=== PATIENT | female | born 1950 ===

== ENCOUNTER 2017-03-10 08:35 | Observation (INO) | payer OTHER ==
[2017-03-10] MEDS ORDERED: NS 1,000 ML IV ONE (08:38)
--- NOTE | 2017-03-10 08:58 | CPEKG ---
Heart Rate: 61 RR Interval: 984 P-R Interval: 152 QRSD Interval: 98 QT Interval: 400 QTC Interval: 403 P [place]: 69 QRS [place]: -17 T Wave [place]: 47 EKG Severity - ABNORMAL ECG - EKG Impression: SINUS RHYTHM EKG Impression: VENTRICULAR TRIGEMINY EKG Impression: BORDERLINE LEFT AXIS DEVIATION EKG Impression: LOW VOLTAGE IN FRONTAL LEADS Electronically Signed By: Alannah Gallegos 10-Mar-2017 14:18:46
--- NOTE | 2017-03-10 09:01 | PDANEPAE ---
ANE Past Medical History - Cardiovascular History Hx Arrhythmias: Yes Hx Palpitations: Yes Cardiovascular History Comment: SVT with syncopal episodes - Neurological & Psychiatric Hx Neurological / Psychiatric History Comment: depression ANE Review of Systems Review of Systems: ANE Patient History - Allergies Allergies/Adverse Reactions: codeine Allergy (Verified 03/10/17 08:56) ANE Physical Exam - Airway Mallampati Score: Class 1 Mouth exam: normal dental/mouth exam - Pulmonary Pulmonary: no respiratory distress, no rales or rhonchi, clear to auscultation - Cardiovascular Cardiovascular: regular rate and rhythym, no murmur, rub, or gallop, pulses symmetric bilaterally - ASA Status ASA Status: II ANE Anesthesia Plan Anesthesia Plan: general endotracheal anesthesia
[2017-03-10 09:10] LABS: % IMMATURE GRANULYOCYTES 0.2 % (0.0-1.1); ABSOLUTE IMMATURE GRANULOCYTES 0.01 10^3/uL (0.00-0.10); ADD DIFF? NO; ADD MORPH? NO; ADD SCAN? NO; ATYPICAL LYMPHOCYTE FLAG 20 (0-99); FRAGMENT RBC FLAG 0 (0-99); HEMATOCRIT 39.7 % (38.0-47.0); HEMOGLOBIN 13.7 g/dL (12.6-16.3); LEFT SHIFT FLG 0 (0-99); LIPEMIA HEMOLYSIS FLAG 90 (0-99); MEAN CELL HEMOGLOBIN 31.4 pg (27.9-34.1); MEAN CELL HEMOGLOBIN CONCENTR. 34.5 g/dL (32.4-36.7); MEAN CELL VOLUME 91.1 fL (81.5-99.8); PLATELET CLUMPS FLAG 10 (0-99); PLATELET COUNT 127 10^3/uL (150-400); RED BLOOD CELL COUNT 4.36 10^6/uL (4.18-5.33)
[2017-03-10] MEDS ORDERED: HEPARIN 10,000 UNIT/10 ML MDV ONE (09:11)
[2017-03-10] MEDS ORDERED: LIDOCAINE 1% 300 MG/30 ML SDV ONE (09:11)
[2017-03-10] MEDS ORDERED: BUPIVACAINE 0.5% 30 ML SDV ONE (09:11)
[2017-03-10] MEDS ORDERED: ISOPROTERENOL HCL/D5W 0.2 MG/50 ML BAG IV ONE (09:11)
--- NOTE | 2017-03-10 09:19 | PDGENHP ---
History & Physical Chief Complaint: Palpitation History of Present Illness: Pt had palpitation which brought her to the ER and it terminated with Adenosine. Pertinent Past, Social, Family History: Non smoker, No significant ETOH abuse Relevant Physical Exam: Normal Cardiac and pulmonary exam Cardiorespiratory Assessment: Normal SR with PVC. Normal cardiopulmonary exam
[2017-03-10] MEDS ORDERED: PROPOFOL/EMULSION 500 MG/50 ML BOTTLE IV ONE (09:24)
[2017-03-10] MEDS ORDERED: MIDAZOLAM 2 MG/2 ML VIAL ONE (09:24)
[2017-03-10] MEDS ORDERED: fentaNYL 100 MCG/2 ML INJ ONE (09:24)
[2017-03-10 09:28] LABS: ANION GAP 11 mEq/L (8-16); CARBON DIOXIDE 25 mEq/l (22-31); CHLORIDE 105 mEq/L (97-110); GLOMERULAR FILTRATION RATE 56; GLUCOSE 56 mg/dL (70-100); INR 1.17 (0.83-1.16); MAGNESIUM 2.1 mg/dL (1.6-2.3); POTASSIUM 3.9 mEq/L (3.5-5.2); PROTIME(PATIENT) 14.9 SEC (12.0-15.0); SODIUM 141 mEq/L (134-144)
[2017-03-10 09:29] LABS: APTT 32.3 SEC (23.0-38.0)
[2017-03-10] MEDS ORDERED: SUGAMMADEX SODIUM 200 MG/2 ML VIAL IVP ONE (10:14)
[2017-03-10] MEDS ORDERED: ONDANSETRON 4 MG/2 ML VIAL ONE (10:14)
[2017-03-10] MEDS ORDERED: ROCURONIUM 50 MG/5 ML VIAL ONE ×2 (10:14→11:16)
[2017-03-10] MEDS ORDERED: epHEDrine SULFATE 10 MG/ML SYR ONE (10:14)
[2017-03-10] MEDS ORDERED: PHENYLEPHRINE HCL 100 MCG/ML SYR ONE ×2 (10:14→11:46)
[2017-03-10] MEDS ORDERED: ONDANSETRON 4 MG/2 ML VIAL IVP PRN (12:00)
[2017-03-10] MEDS ORDERED: ACETAMINOPHEN 325 MG TAB PO PRN (12:00)
[2017-03-10] MEDS ORDERED: LR 500 ML IV PRN (13:02)
[2017-03-10] MEDS ORDERED: fentaNYL 100 MCG/2 ML INJ IVP PRN (13:02)
[2017-03-10] MEDS ORDERED: ALBUTEROL 3 ML DEYVIAL IH PRN (13:02)
[2017-03-10] MEDS ORDERED: NALOXONE HCL 0.4 MG/ML INJ IVP PRN (13:02)
[2017-03-10] MEDS ORDERED: DEXAMETHASONE 4 MG/ML VIAL IVP PRN (13:02)
[2017-03-10] MEDS ORDERED: PROMETHAZINE HCL 25 MG/ML INJ IVP PRN (13:02)
--- NOTE | 2017-03-10 13:02 | POSTANESTH ---
Post Anesthetic Evaluation Cardiovascular Status: Normal, Stable Respiratory Status: Normal, Stable Level of Consciousness/Mental Status: Can Participate in Eval Pain Control: Adequate, Prn Tx Ordered Nausea/Vomiting Control: Adequate, Prn Tx Ordered Complications Possibly Related to Anesthesia: None Noted
[2017-03-10 13:49] LABS: ANION GAP 8 mEq/L (8-16); CALCIUM 9.3 mg/dL (8.5-10.4); CARBON DIOXIDE 25 mEq/l (22-31); CHLORIDE 108 mEq/L (97-110); CREATININE 0.9 mg/dL (0.6-1.0); GLOMERULAR FILTRATION RATE > 60; GLUCOSE 100 mg/dL (70-100); MAGNESIUM 2.2 mg/dL (1.6-2.3); SODIUM 141 mEq/L (134-144)
[2017-03-11 05:03] LABS: % IMMATURE GRANULYOCYTES 0.2 % (0.0-1.1); ABSOLUTE IMMATURE GRANULOCYTES 0.01 10^3/uL (0.00-0.10); ADD DIFF? NO; ADD MORPH? NO; ADD SCAN? NO; ATYPICAL LYMPHOCYTE FLAG 10 (0-99); FRAGMENT RBC FLAG 0 (0-99); HEMATOCRIT 36.1 % (38.0-47.0); HEMOGLOBIN 12.6 g/dL (12.6-16.3); LEFT SHIFT FLG 0 (0-99); LIPEMIA HEMOLYSIS FLAG 90 (0-99); MEAN CELL HEMOGLOBIN 32.4 pg (27.9-34.1); MEAN CELL HEMOGLOBIN CONCENTR. 34.9 g/dL (32.4-36.7); MEAN CELL VOLUME 92.8 fL (81.5-99.8); PLATELET CLUMPS FLAG 20 (0-99); PLATELET COUNT 111 10^3/uL (150-400); RED BLOOD CELL COUNT 3.89 10^6/uL (4.18-5.33)
[2017-03-11 05:17] LABS: ANION GAP 6 mEq/L (8-16); CALCIUM 9.5 mg/dL (8.5-10.4); CARBON DIOXIDE 26 mEq/l (22-31); CHLORIDE 105 mEq/L (97-110); GLOMERULAR FILTRATION RATE 56; GLUCOSE 76 mg/dL (70-100); POTASSIUM 4.2 mEq/L (3.5-5.2); SODIUM 137 mEq/L (134-144)
[2017-03-11 05:18] LABS: INR 1.31 (0.83-1.16); PROTIME(PATIENT) 16.3 SEC (12.0-15.0)
[2017-03-11 05:29] LABS: CREATINE KINASE-MB FRACTION 1.88 ng/mL (0.00-3.19); TROPONIN I 0.388 ng/mL (0.000-0.034)
--- NOTE | 2017-03-11 08:51 | EPPROC ---
Electrophysiology Procedure Note: 90264-41 EP evaluation with RA/RV/LA pace/record, with arrhythmia induction 41877-97 EP evaluation with RA/RV pace record, insert/reposition catheter, with arrhythmia induction [id number] Intracardiac catheter ablation, SVT arrhythmogenic focus [id number] 3D mapping Fluoroscopy INDICATION: This is a 66 yr old with palpitation on and off which would make her SOA and she had visit to the ER where Adenosine terminated it. She did not want to use medications to control it and hence it was decided to perform Ep study with possibility of RF ablation. PROCEDURE: Catheters & Anesthesia: The patient arrived in the Electrophysiology Laboratory in the fasting state. The right clavicular region, right groin, and left groin area were prepped and draped in the usual sterile manner. Anesthesiologist administered general anesthesia. Appropriate non-invasive blood pressure, pulse oximetry and end- tidal CO2 monitoring was established. All catheters were placed percutaneously using the modified Seldinger technique , and advanced into position under fluoroscopic guidance. One CRD2 catheter was advanced to the His-bundle position via the right femoral vein but later changed to Octapolar deflectable catheter. One #7 Welsh deflectable catheter with 10 pairs of electrodes was placed via the right femoral vein into the coronary sinus. Heparin was given tat 3000U Programmed stimulation was performed from the right atrium, right ventricle and coronary sinus (left atrium). Parahisian pacing demonstrated constant H-A interval with changing V-A intervals and stimulus-A intervals during capture and loss of capture of proximal RBB proving retrograde conduction over AV node. AVNRT was induced easily during infusion of isoproterenol 2 mcg/min. Ventricular extrastimuli delivered during tachycardia without altering antegrade His bundle activation did not advance next atrial potential, indicating that the tachycardia was not utilizing an accessory pathway for retrograde conduction. VA interval was 0 ms. Post entrainment of the tachycardia from the ventricle, there was VAHV response. Mapping of the right atrium and coronary sinus during AVNRT identified earliest atrial activation above the tendon of Jocelyn at a level slightly posterior to the level of the His bundle, consistent with retrograde conduction over the fast AV dameon pathway. A #8 Welsh deflectable quadrapolar electrode catheter (2mm-5mm-2mm spacing) with 4 mm tip electrode and sensor for the 3D mapping Carto system was advanced to the right atrium. Later SL3 sheath was used to stabilize the catheter. 3 D mapping of the inter-atrial septum and coronary sinus was performed and location of the AV node was marked. RF applications were delivered to the region between the tricuspid annulus and the coronary sinus ostium, at the level of the upper edge of the coronary sinus ostium. Radiofrequency applications were also delivered along the roof of the proximal coronary sinus. Several lesions had to be given. Junctional rhythm occurred during all of the RF applications. Programmed stimulation was continued post ablation at baseline and during graded doses of isoproterenol upto 4mcg/min. Sustained AVNRT was not inducible. There were 1 echo beats. The catheters were removed. The long sheath was changed to a short 9 Fr sheath. The patient was transferred to the cardiovascular holding area in stable condition. Vascular access sheaths were removed in the holding area. There were no apparent complications. Results: SCL 898ms AVWB 360ms TCL 160bpm VA during SVT 0ms VA during SR 70ms CONCLUSIONS AV dameon reentrant tachycardia using the slow AV dameon pathway for antegrade conduction and the fast AV dameon pathway for retrograde conduction. ( Slow/fast AVNRT). Successful ablation of the slow AV dameon pathway with elimination of 1:1 antegrade conduction over the slow AV dameon pathway, all retrograde conduction over the slow AV dameon pathway and the inducibility of AVNRT. No complications.
[2017-03-11] MEDS ORDERED: NON-FORMULARY NEW DRUG (Simvastatin [Simvastatin] 40 MG) PO SCH (09:00)
[2017-03-11] MEDS ORDERED: ATORVASTATIN CALCIUM 20 MG TAB PO SCH (09:00)
[2017-03-11] MEDS ORDERED: SERTRALINE HCL 100 MG TAB PO SCH (09:00)
[2017-03-11] MEDS ORDERED: ASPIRIN 325 MG TAB PO SCH (09:00)
[2017-03-11] MEDS ORDERED: CALCIUM CARBONATE 500 MG TAB PO SCH (09:00)
--- NOTE | 2017-03-11 09:29 | CPEKG ---
Heart Rate: 58 RR Interval: 1034 P-R Interval: 140 QRSD Interval: 94 QT Interval: 400 QTC Interval: 393 P [place]: 69 QRS [place]: 0 T Wave [place]: 54 EKG Severity - BORDERLINE ECG - EKG Impression: SINUS RHYTHM EKG Impression: LOW VOLTAGE THROUGHOUT EKG Impression: COMPARED WT 10 MAR 2017, VENTRICULAR ECTOPY RESOLVED Electronically Signed By: Alannah Gallegos 11-Mar-2017 21:37:47
[2017-03-11 11:14] VITALS: BP 103/41; PULSE 55; RESP 18; TEMP 98.2; O2SAT 97
--- NOTE | 2017-03-11 12:03 | ECHO ---
[id number] + + [address] : : [place] [address] : : [phone] + + Adult Echocardiographic Report + --+ :Name: MARTITARyan Date: 03/11/2017 10:06 AM : : Hospital Admission Number: [id number] Location: 2 17: :: 1950 Gender: Female Height: 64 in : :Age: 66 yrs Race: PTD Weight: 110 lb : :Reason For Study: Eval LV Fx : : BSA: 1.5 meters2 : :History: Post Ablation : + --+ MMode/2D Measurements & Calculations IVSd: 0.80 cm LVIDd: 3.5 cm FS: 38.0 % Ao root diam: 3.4 cm LVPWd: 0.91 cm LVIDs: 2.2 cm EDV(Teich): 51.6 ml ACS: 1.9 cm ESV(Teich): 15.9 ml EF(Teich): 69.2 % Normal Measurement Values: + + :LVIDd (3.5-5.7cm) IVSd (0.6-1.1cm) LVPWd (0.6-1.1cm) Aortic Root (2.0-3.7cm)Left Atrium (1.5-4.0cm): :LV Vol(d) (76-115ml) LV Vol(s) (29-48ml) Ejec Fraction (50-65%)PV Reggie (0.6- 1.2m/s) TV Reggie (0.4-1.0m/s) : :MV E Reggie (0.8-1.0m/s)MV A Reggie (0.3-1.0m/s)LVOT Reggie (0.7-1.2m/s) Asc Ao Reggie ( 0.9-1.8m/s) : + + Doppler Measurements & Calculations MV E max reggie: Ao V2 max: LV V1 max: PA V2 max: 79.0 cm/sec 149.3 cm/sec 87.4 cm/sec 53.3 cm/sec MV A max reggie: Ao max P.9 mmHg LV V1 max PG: PA max P.8 cm/sec 3.1 mmHg 1.1 mmHg MV E/A: 1.5 Left Ventricle The left ventricle is normal in size. There is normal left ventricular wall thickness. The left ventricular ejection fraction is normal. There is Doppler evidence for diastolic dysfunction. Ejection Fraction = 69%. The left ventricular wall motion is normal. Right Ventricle The right ventricle is normal in size and function. Atria The left atrial size is normal. Right atrial size is normal. Mitral Valve The mitral valve is normal. There is no mitral valve stenosis. There is no mitral regurgitation noted. Tricuspid Valve Normal tricuspid valve. There is trace tricuspid regurgitation. Right ventricular systolic pressure is normal. Aortic Valve The aortic valve is normal in structure and function. There is no aortic stenosis. There is no aortic insufficiency. Pulmonic Valve The pulmonic valve is normal in structure and function. There is no pulmonic valvular regurgitation. Great Vessels The aortic root is normal size. Pericardium/Pleural There is a trivial to small anterior pericardial effusion noted on the RV free wall. Conclusion A complete two-dimensional transthoracic echocardiogram was performed (2D, M-mode, Doppler and color flow Doppler). The left ventricular ejection fraction is normal. There is Doppler evidence for diastolic dysfunction. Ejection Fraction = 69%. The left ventricular wall motion is normal. The right ventricle is normal in size and function. There is trace tricuspid regurgitation. Right ventricular systolic pressure is normal. The aortic valve is normal in structure and function. There is a trivial to small anterior pericardial effusion noted on the RV free wall. Final Reading Physician: Oracio Devi signed on 03/11/2017 12:01 PM Ordering Physician: Kamari Peter Performed By: Paulo Rodríguez, ANILCS
--- NOTE | 2017-03-11 12:38 | GDS ---
[f rep st] DISCHARGE SUMMARY DISCHARGE DIAGNOSIS: 1. 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 2. Frequent unifocal premature ventricular contractions. HOSPITAL COURSE: For detailed H and P, please see prior dictation. 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 Her symptoms are associated with near syncope, and therefor e she had a consultation with Dr. Kamari Peter to discuss treatment options. She did not want medica l therapy and therefore decided to proceed with RF ablation. This was performed by Dr. Kamari Peter on 03/10/2017. She was identified to have an AV dameon reentry tachycardia, which was ablated with go od results. The following morning, her troponin was 0.388. She was monitored on telemetry and remai kori in sinus rhythm, with frequent unifocal PVCs. These were present prior to and after her ablation . She denied any chest discomfort, shortness of breath, or palpitations the day of discharge. Her E KG revealed normal sinus rhythm. Her groin, where access was obtained for the EP study, was clean an d intact, without any evidence of infection or hematoma. She denies any significant discomfort of th e groin site. She had an echocardiogram the day of discharge. It showed preserved LV function with a [id number] pericardial effusion around the right ventricle. PHYSICAL EXAMINATION: GENERAL: Patient appears in no acute distress. VITALS: Blood pressure 103/4 1, heart rate 55, oxygen saturation of 97% on room air, afebrile. LUNGS: Clear to auscultation. No wheezes, rhonchi, or crackles auscultated. CARDIAC: Regular rate and rhythm without any significan t murmurs, rubs, or gallops appreciated. EXTREMITIES: Palpable pulses bilaterally, without any evid ence of edema. GENITOURINARY: Right groin, where access was obtained for the EP study, is clean and intact without any evidence of infection or hematoma. DISCHARGE MEDICATIONS: Aspirin 325 mg daily. She will continue simvastatin 40 mg daily. Zoloft 100 mg daily, and calcium 500 mg daily. PLAN: The patient is currently stable and ready for discharge home. She has been given groin precau tions. She will follow up with Dr. Peter on April 13 at 10:30 a.m., as scheduled. She is aware t hat she is to remain on aspirin 325 mg for 1 month, and then she can reduce her dose to 81 mg daily. Greater than 30 minutes was spent coordinating the patient's care and plan today. /[id number]/MODL
== END 2017-03-11 13:22 | disposition home or self-care (01) ==
LOC: FSGY 08:35 → F2W 12:00
PROVIDERS: ADMIT Internal Medicine Cardiovascular Disease; ATTEND Internal Medicine Cardiovascular Disease
PROC: 02H63MZ Insertion of Cardiac Lead into Right Atrium, Percutaneous Approach (ICD-10-PCS; principal; 2017-03-10)
PROC: 02K83ZZ Map Conduction Mechanism, Percutaneous Approach (ICD-10-PCS; principal; 2017-03-10)
PROC: 02573ZZ Destruction of Left Atrium, Percutaneous Approach (ICD-10-PCS; principal; 2017-03-10)
PROC: 5A1213Z Performance of Cardiac Pacing, Intermittent (ICD-10-PCS; principal; 2017-03-10)
PROC: B2161ZZ Fluoroscopy of Right and Left Heart using Low Osmolar Contrast (ICD-10-PCS; principal; 2017-03-10)
PROC: 4A023FZ Measurement of Cardiac Rhythm, Percutaneous Approach (ICD-10-PCS; principal; 2017-03-10)
PROC: 025K3ZZ Destruction of Right Ventricle, Percutaneous Approach (ICD-10-PCS; principal; 2017-03-10)
PROC: 02563ZZ Destruction of Right Atrium, Percutaneous Approach (ICD-10-PCS; principal; 2017-03-10)
PROC: 02H73MZ Insertion of Cardiac Lead into Left Atrium, Percutaneous Approach (ICD-10-PCS; principal; 2017-03-10)
DX: I47.1 Supraventricular tachycardia (principal); I49.3 Ventricular premature depolarization
CPT/HCPCS: 93005; 93306; 93613; 93621; 93623; 93653; C1730; C1731; C1732; C1893; G0378; J1644; J2250; J2370; J2405; J2704; J3010